=== PATIENT | female | born 1965 | race Caucasian/White ===

== ENCOUNTER → 2016-09-04 | Day surgery (SDC) | payer OTHER ==
[~2016-09-04] VITALS: Ht 160 cm; Wt 108.3 kg
[2016-09-04] VITALS (10 sets, daily range): BP systolic 129–181; BP diastolic 70–96; PULSE 73–92; RESP 14–19; O2SAT 93–99
[~2016-09-04] MED LIST: ALBU18HF INH; Atropine 0.4 mg/mL Inj IVPUSH PRN; CLOB59SP3 TP; Dexamethasone 4 mg/mL Inj IVPUSH PRN; Dexamethasone 4 mg/mL Inj ONE; EPHEDrine Sulfate 50 mg/mL Inj IVPUSH PRN; FLUT16SP NS; FOLI1TAB50 PO; GABA-502 PO; HYDR30CR98 RC; HYDROmorphone 1 mg/mL Inj IVPUSH PRN; KEN25CR EXT; KETO10DR4 OP; KTC2C15 TP; LEVO25TA5 PO; Lactated Ringer's 1,000 ML IV SCH; Lactated Ringer's 500 ML IV PRN; MYCC TOP; MetoCLOpramide 5 mg/mL 2 mL Inj IVPUSH PRN; NYST1000 PO; OMEP20CA11 PO; Ondansetron 2 mg/mL 2 mL Inj IVPUSH PRN; Ondansetron 2 mg/mL 2 mL Inj ONE; PHEN-528 PO; Phenylephrine 10,000 mCg/mL Inj IVPUSH PRN; Propofol 10,000 mCg/mL 20 mL Inj ONE; TOPI-59 PO; TRAM50TA2 PO; VENL75CA PO; fentaNYL-PF 50 mCg/mL 2 mL Inj IVPUSH PRN; fentaNYL-PF 50 mCg/mL 2 mL Inj ONE; oxyCODONE-Acetamin 5-325 mg Tablet PO PRN
[2016-09-04] MEDS: Lactated Ringer's 1,000 ML IV SCH ×2 (08:26→08:30)
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
--- NOTE | 2016-09-04 11:21 | PCM.ANEP1 ---
Post Anesthesia PACU Phase 1 Assessment Date of Service: Sep 04, 2016 Vital Signs 36.3 166/92 89 20 96% RA Anesthetic Administered: GA Level of Alertness: Sleepy, easy to arouse ORTEGA's with Equal Strength: Yes Pain: No Nausea or Vomiting: No CV Function & Hydration Stable: Yes Airway Device: Nasal Airway Oxygen Delivery: Room Air Lungs: Clear to Auscultation, Normal Air Movement PACU Phase 2 Assessment Complications: No Follow up Care: N/A Patient Instructions Provided: Yes Heledr Echevarria MD Sep 04, 2016 11:21
--- NOTE | 2016-09-04 16:56 | OP ---
[address] [address] OPERATIVE REPORT PATIENT: YESENIA MANLEY : 1965 MR#: [id number] ADMIT: 09/04/2016 JOB ID: [id number] DATE OF SURGERY: 09/04/2016 PREOPERATIVE DIAGNOSIS(ES): 1. Right hand foreign body. 2. Left index finger radial digital nerve laceration. POSTOPERATIVE DIAGNOSIS(ES): 1. Right hand foreign body. 2. Left index finger radial digital nerve laceration. PROCEDURE: 1. Excision of right hand foreign body. 2. Repair of left index finger radial digital nerve with utilization of a conduit. SURGEON: Rishi Carter DO ANESTHESIA: General. HISTORY: The patient is a pleasant 51-year-old female that presented to me with two separate complaints. She complained of a foreign body to the dorsal aspect of her right hand from getting stuck with a blackberry thorn over five years ago. Despite continued observation it continued to be painful, especially when she bumped her hand. We discussed treatment options including continuing to observe versus having this excised and she opted to proceed with an excision. The patient also complained of left index finger radial sided numbness. Back in November she was bit by her king retriever and sustained a laceration to the volar aspect of the middle phalanx. She was seen at the emergency department, where she was irrigated and closed, but she continued to have numbness along the radial aspect of the finger distal to the laceration. As her symptoms have not been improving, I discussed with her the option again for continued observation with permanent numbness along the radial aspect of the index finger, or an attempt to repair with likely utilization of a conduit due to the timeframe since the injury. She understood the risks of both the surgeries to include but not limited to neurovascular injury, tendon injury, infection, failure to resolve the patient's preoperative symptoms, stiffness, persistent pain, all of which may require further intervention. The patient had all questions answered. Consent was signed and placed in the chart. PROCEDURE IN DETAIL: The patient was brought to the operative suite and placed supine on the operative table. Surgical time-out performed. Everyone was in agreement. After prepping, anesthesia was obtained. The patient's right dorsal hand was anesthetized utilizing 1% lidocaine without epinephrine. The anesthetic was allowed to set and attention was turned towards the left index finger. The left hand was then prepped and draped in sterile fashion and the tourniquet inflated to 250 mmHg. The patient's previous laceration to the volar aspect of the index finger was extended both proximally and distally. The finger demonstrated significant scar tissue. The ulnar neurovascular bundle was identified and found to be completely intact. The radial digital neurovascular bundle was found to be lacerated at the level of the middle aspect of the middle phalanx. There was significant scarring to the lacerated ends of the radial digital nerve. The radial digital nerve was neurolysed to allow for adequate excursion and then utilizing a new scalpel the ends were cut back until spotty fascicles could be appreciated. This left a centimeter deficit. Further irrigation was performed and the deficit was bridged with an [employer] nerve connector measuring 3 mm in diameter and 15 mm in length. The proximal and distal stumps of the digital nerve were placed within the connector and secured utilizing a combination of horizontal and simple sutures with 8-0 nylon and 7-0 Prolene, as there was no longer any remaining and 8-0 nylon left. Further irrigation was performed followed by closure of skin with 5-0 nylon in simple interrupted fashion. The left hand was then placed into a well-padded well-molded radial gutter splint. Attention was then turned towards the right hand. A curvilinear incision was made directly overlying the second metacarpophalangeal joint. Dissection was carried down to the extensor last, which revealed a small foreign body retail customer service representative of a small thorn. This was thus removed. Further irrigation was performed and the overlying skin closed with 5-0 nylon in simple interrupted fashion. The patient was then placed in a bulky soft dressing. ESTIMATED BLOOD LOSS: Less than 5 mL. COMPLICATIONS: None. DISPOSITION: The patient tolerated the procedure well. Anesthesia was reversed. The patient was transferred to the PACU for recovery. POSTOPERATIVE PLAN: The patient will follow up in the office in two weeks for suture removal to both the right and left hand and start working on range of motion and scar mobilization.
== END | disposition home or self-care (01) ==
LOC: SAS 07:43
PROVIDERS: ATTEND Orthopaedic Surgery
DX: S64.49 Injury of digital nerve of other finger (principal); S60.551D Superficial foreign body of right hand, subsequent encounter; K21.9 Gastro-esophageal reflux disease without esophagitis; J45.909 Unspecified asthma, uncomplicated; G47.33 Obstructive sleep apnea (adult) (pediatric); M19.90 Unspecified osteoarthritis, unspecified site; M79.7 Fibromyalgia; G25.81 Restless legs syndrome; E66.01 Morbid (severe) obesity due to excess calories; F32.9 Major depressive disorder, single episode, unspecified; Z86.14 Personal history of Methicillin resistant Staphylococcus aureus infection; Z98.84 Bariatric surgery status; Z68.41 Body mass index [BMI] 40.0-44.9, adult; W54.0XXS Bitten by dog, sequela; Y92.9 Unspecified place or not applicable
CPT/HCPCS: 26075; 64910; 76942; C1763; J0690; J1100; J1885; J2405; J3010; J7120

== ENCOUNTER → 2016-10-09 | Day surgery (SDC) | payer OTHER ==
[~2016-10-09] VITALS: Ht 160 cm; Wt 106.1 kg
[~2016-10-09] MED LIST changes: +0.9% Sodium Chloride 1,000 ML IV SCH; -Atropine 0.4 mg/mL Inj IVPUSH PRN; -Dexamethasone 4 mg/mL Inj IVPUSH PRN; -Dexamethasone 4 mg/mL Inj ONE; -EPHEDrine Sulfate 50 mg/mL Inj IVPUSH PRN; -HYDR30CR98 RC; -HYDROmorphone 1 mg/mL Inj IVPUSH PRN; -KEN25CR EXT; -KTC2C15 TP; -Lactated Ringer's 1,000 ML IV SCH; -Lactated Ringer's 500 ML IV PRN; -MetoCLOpramide 5 mg/mL 2 mL Inj IVPUSH PRN; -Ondansetron 2 mg/mL 2 mL Inj IVPUSH PRN; -Ondansetron 2 mg/mL 2 mL Inj ONE; -Phenylephrine 10,000 mCg/mL Inj IVPUSH PRN; -Propofol 10,000 mCg/mL 20 mL Inj ONE; +Sodium Chloride LOK Flush 10 mL Syringe IV PRN; -fentaNYL-PF 50 mCg/mL 2 mL Inj ONE; -oxyCODONE-Acetamin 5-325 mg Tablet PO PRN
[2016-10-09 08:21] VITALS: BP 120/76; PULSE 64; RESP 12; O2SAT 98
[2016-10-09 09:05] VITALS: BP 129/78; PULSE 73; RESP 17; O2SAT 99
--- NOTE | 2016-10-09 09:05 | PCM.ENDCOL ---
Colonoscopy Date of Service: Oct 09, 2016 Physician Paul Renteria MD Pre Procedure Diagnosis: History of polyps and diarrhea resolved. Post Procedure Dx & Findings: Polyp hemorrhoids diverticuli Procedure Colonoscopy PROCEDURE IN DETAIL: Prep adequate Withdrawal time 17 minutes After unremarkable rectal examination the Olympus video colonoscope was inserted patient's anal canal and was advanced to cecum. Landmarks were identified including the ileocecal valve and appendiceal orifice. Scope was withdrawn systematically. Visualized colonic mucosa showed healthy shiny mucosa with normal healthy-appearing vasculature. In the cecum, there was a 1 mm polyp removed completely with cold forceps. The transverse colon there was a 5 mm polyp which is removed completely using cold snare. In the sigmoid colon there a few small diverticuli. In the rectum retroflexion was done which showed hemorrhoids. Anal canal was inspected carefully on the way out and hemorrhoids noted. Impression History of polyps Polyps 2 status post complete removal Diverticuli Hemorrhoids Recommendation Repeat colonoscopy 5 years Diverticular diet Presedation Assessment Risks and Benefits Informed consent was obtained from the patient after all risks and benefits including but not limited to drug reaction, infection, pain, bleeding, perforation, as well as alternatives were discussed. Patient monitoring Continuous pulse oximetry, cardiac monitoring, blood pressure monitoring, IV access, and oxygen at 2L per nasal cannula. Periprocedural Fentanyl: Fentanyl 125mcg Incrementally Midazolam: Midazolam 7mg Incrementally Complications There were no periprocedural complications identified. Post Procedure Plan Post Procedure Recommendations 1. Restrict activities today. 2. Resume normal activities in the morning. 3. Resume medications. 4. Patient informed of normal post procedure side effects as bloating, drowsiness, blood streaking in the stool. 5. average risk CRCS. If colon polyps come back as: -Hyperplastic- can repeat colonoscopy in 10 years -Tubular adenoma- repeat colonoscopy in 5 years -Tubulovillous/villous adenoma- repeat colonoscopy in 3 years -If any dysplasia- return to clinic as soon as possible 6. Please don't hesitate to call me with any questions. Paul Renteria MD Oct 09, 2016 09:05
[2016-10-09 09:17] VITALS: BP 121/73; PULSE 73; RESP 13; O2SAT 100
[2016-10-09 09:24] VITALS: BP 136/80; PULSE 60; RESP 16; O2SAT 98
--- NOTE | 2016-10-16 15:20 | PATH ---
SURGICAL PATHOLOGY Attending Physician:Paul Renteria M.D. CASE STATUS: Signed Out PATIENT NAME: YESENIA MANLEY PID: [id number] : 1965 DATE COLLECTED:10/09/2016 00:00 SPECIMEN: 1: Colon, Polyp 2: Colon, Polyp CLINICAL HISTORY: PERSONAL HISTORY OF POLYPS 1). CECAL POLYP X 1 2). TRANSVERSE COLON POLYP FINAL DIAGNOSIS: 1. Cecum, Polyp x1, Biopsy: Colonic mucosa with no diagnostic abnormality, consistent with polypoid redundancy. Negative for dysplasia and malignancy. Additional levels were examined. 2. Transverse Colon, Polyp, Biopsy: Tubular adenoma. ICD10: D12.3 GROSS DESCRIPTION: The specimen is received in two formalin filled containers labeled with the patient's name. 1). The specimen is labeled "cecal polyp" and consists of an extremely tiny less than 0.1 CM portion of tissue which is entirely submitted in cassette 1A. 2). The specimen is labeled "transverse colon polyp" and consists of multiple portions of tissue which aggregate to 0.3 x 0.3 x 0.2 CM. The specimen is entirely submitted in cassette 2A. 10/09/2016DC ICD-9 CODES: CPT CODES: 1: 36714 2: 08804 Electronically Signed Out Susan Herrera MD [facility] Pathology [facility] [address], [place] [address] Technical component performed at [facility], [facility] [address], [address]
== END | disposition home or self-care (01) ==
LOC: END 07:59
PROVIDERS: ATTEND Internal Medicine
DX: Z12.11 Encounter for screening for malignant neoplasm of colon (principal); D12.3 Benign neoplasm of transverse colon; K63.5 Polyp of colon; K57.30 Diverticulosis of large intestine without perforation or abscess without bleeding; K64.8 Other hemorrhoids; Z86.010 Personal history of colon polyps; Z80.0 Family history of malignant neoplasm of digestive organs; F32.9 Major depressive disorder, single episode, unspecified; E78.00 Pure hypercholesterolemia, unspecified; E03.9 Hypothyroidism, unspecified; G47.00 Insomnia, unspecified; G47.30 Sleep apnea, unspecified; G25.81 Restless legs syndrome
CPT/HCPCS: 45380; 45385; 99153; G0500; J2250; J3010; J7030